=== PATIENT | female | born 1960 | race African-American/Black ===

== ENCOUNTER 2017-05-05 11:48 | Emergency (ER) | payer MEDICARE ==
[2017-05-05 12:17] LABS: #Basophils 0.1 thou/uL (0.0-0.2); #Eosinphils 0.1 thou/uL (0.0-0.7); #Lymphocytes 2.9 thou/uL (1.20-3.40); #Monocytes 0.7 thou/uL (0.11-0.59); #Neutrophils 5.6 thou/uL (1.40-6.50); %Basophils 0.7 % (0.0-1.0); %Eosinophils 0.7 % (0.0-10.0); %Lymphocytes 30.9 % (21.0-51.0); %Monocytes 7.5 % (0.0-10.0); %Neutrophils 60.1 % (42.0-75.0); Mean Corpuscular HGB CONC 32.7 g/dL (32.0-36.0); Mean Corpuscular Hemoglobin 27.1 pg (27.0-31.0); Mean Platelet Volume 6.9 fL (7.4-10.4); Platelet Count 185 thou/uL (130-400); RBC Distribution Width 13.4 % (11.5-14.5); Red Blood Cell (RBC) Count 5.16 mill/uL (4.20-5.40); White Blood Cell (WBC) Count 9.2 thou/uL (4.8-10.8)
[2017-05-05 12:34] LABS: ALT (SGPT) 17 U/L (8-55); AST (SGOT) 20 U/L (5-34); Albumin 4.1 g/dL (3.5-5.0); Alkaline Phosphatase 86 U/L (40-150); Anion Gap 15 mmol/L (10-20); BUN (Urea Nitrogen) 13 mg/dL (9.8-20.1); Bilirubin, Total 0.3 mg/dL (0.2-1.2); CK (CPK) 171 U/L (29-168); CKMB 6.6 ng/mL (0-6.6); Calc. Creatinine Clearance 0 mL/min (70-130); Calcium 9.7 mg/dL (7.8-10.44); Carbon Dioxide 24 mmol/L (22-29); Chloride 100 mmol/L (98-107); Estimated GFR-MDRD 63; Globulin 3.2 g/dL (2.4-3.5); Glucose 99 mg/dL (70-105); Lipase 38 U/L (8-78); Protein, Total 7.3 g/dL (6.0-8.3); Sodium 135 mmol/L (136-145); Troponin I 0.085 ng/mL (< 0.028)
[2017-05-05 12:47] LABS: Bilirubin Negative (Negative); Blood, Urine Small (Negative); Clarity Clear (Clear); Glucose, Urine (Dipstick) Negative (Negative); Leukocyte Negative (Negative); Nitrite Negative (Negative); Protein, Urine (Dipstick) Negative (Neg-Trace); Urobilinogen 0.2 mg/dL (0.2-1.0)
[2017-05-05 12:48] LABS: Bacteria/HPF Rare-Few HPF (None Seen); RBC/HPF 0-3 HPF (0-3); Squamous Epithelial 0-3 HPF (0-3); WBC/HPF 0-3 HPF (0-3)
--- NOTE | 2017-05-05 20:16 | RAD ---
PORTABLE CHEST 05/05/17 An AP portable film at 1203 is compared with a 05/16/16 study. The heart is mildly enlarged but unchanged in size. There are no congestive findings today. No effus ions or edema were present. The lungs are clear. The trachea is midline. The cardiac pacer remains i n place. IMPRESSION: Mild cardiomegaly but no acute thoracic finding. POS: HOME
== END 2017-05-05 14:12 | disposition short-term general hospital (02) ==
LOC: BURERS 11:48
DX: R07.9 Chest pain, unspecified (principal); R74.8 Abnormal levels of other serum enzymes; I25.2 Old myocardial infarction; E78.5 Hyperlipidemia, unspecified; I11.0 Hypertensive heart disease with heart failure; I50.9 Heart failure, unspecified; F17.210 Nicotine dependence, cigarettes, uncomplicated; Z79.84 Long term (current) use of oral hypoglycemic drugs; Z79.899 Other long term (current) drug therapy
CPT/HCPCS: 71010; 80053; 81003; 81015; 82550; 82553; 83690; 83880; 84484; 85025; 93005; 94760

== ENCOUNTER 2018-09-02 23:59 | Emergency (ER) | payer MEDICARE ==
[2018-09-03 00:37] LABS: #Basophils 0.1 thou/uL (0.0-0.2); #Eosinphils 0.1 thou/uL (0.0-0.7); #Lymphocytes 3.3 thou/uL (1.20-3.40); #Monocytes 0.7 thou/uL (0.11-0.59); #Neutrophils 8.7 thou/uL (1.40-6.50); %Basophils 0.7 % (0.0-1.0); %Lymphocytes 25.7 % (21.0-51.0); %Monocytes 5.6 % (0.0-10.0); Hemoglobin 13.2 g/dL (12.0-16.0); Mean Corpuscular HGB CONC 32.6 g/dL (32.0-36.0); Mean Corpuscular Hemoglobin 26.9 pg (27.0-31.0); Mean Corpuscular Volume 82.7 fL (78.0-98.0); Mean Platelet Volume 7.6 fL (7.4-10.4); Platelet Count 196 thou/uL (130-400); RBC Distribution Width 13.5 % (11.5-14.5)
[2018-09-03 00:48] LABS: ALT (SGPT) 17 U/L (8-55); AST (SGOT) 21 U/L (5-34); Albumin 4.1 g/dL (3.5-5.0); Alkaline Phosphatase 74 U/L (40-150); Anion Gap 15 mmol/L (10-20); BUN (Urea Nitrogen) 16 mg/dL (9.8-20.1); Bilirubin, Total 0.3 mg/dL (0.2-1.2); Calc. Creatinine Clearance 0 mL/min (70-130); Calcium 10.3 mg/dL (7.8-10.44); Carbon Dioxide 24 mmol/L (22-29); Chloride 105 mmol/L (98-107); Estimated GFR-MDRD 54; Globulin 3.2 g/dL (2.4-3.5); Glucose 155 mg/dL (70-105); Potassium 4.1 mmol/L (3.5-5.1); Protein, Total 7.3 g/dL (6.0-8.3); Sodium 140 mmol/L (136-145)
[2018-09-03 00:49] LABS: Bilirubin Negative (Negative); Blood, Urine Moderate (Negative); Clarity Clear (Clear); Glucose, Urine (Dipstick) Negative (Negative); Leukocyte Negative (Negative); Nitrite Negative (Negative); Protein, Urine (Dipstick) Negative (Neg-Trace); Specific Gravity, Urine 1.015 (1.005-1.030); Urobilinogen 0.2 mg/dL (0.2-1.0)
[2018-09-03 00:50] LABS: CKMB 3.6 ng/mL (0-6.6); Troponin I 0.063 ng/mL (< 0.028)
[2018-09-03 00:56] LABS: Squamous Epithelial 0-3 HPF (0-3); WBC/HPF 0-3 HPF (0-3)
[2018-09-03] MEDS ORDERED: Lorazepam 2 MG/ML VIAL ONE (01:13)
--- NOTE | 2018-09-03 18:30 | RAD ---
PORTABLE CHEST: 09/03/18 An AP portable film at midnight on 09/03 shows mild to moderate cardiomegaly that is similar to the film. There is no pulmonary edema or pleural effusion. At most, some of the upper lobe vessels may be sligh tly prominent, but even this is equivocal. No focal pulmonary infiltrates were seen. IMPRESSION: Cardiomegaly but no definite acute finding. POS: HOME
== END 2018-09-03 01:34 | disposition short-term general hospital (02) ==
LOC: BURERS 23:59
DX: R07.2 Precordial pain (principal); I25.2 Old myocardial infarction; E78.5 Hyperlipidemia, unspecified; I25.10 Atherosclerotic heart disease of native coronary artery without angina pectoris; F17.210 Nicotine dependence, cigarettes, uncomplicated; I11.0 Hypertensive heart disease with heart failure; I50.9 Heart failure, unspecified; Z79.899 Other long term (current) drug therapy; Z79.01 Long term (current) use of anticoagulants
CPT/HCPCS: 71045; 80053; 81003; 81015; 82553; 83880; 84484; 85025; 93005; 96374; J2060

== ENCOUNTER 2019-02-28 01:21 | Emergency (ER) | payer MEDICARE ==
[2019-02-28] MEDS ORDERED: Benzonatate 100 MG CAP ONE (01:54)
[2019-02-28] MEDS ORDERED: predniSONE 20 MG TAB ONE (02:03)
[2019-02-28] MEDS ORDERED: Azithromycin 250 MG TAB ONE (02:03)
--- NOTE | 2019-02-28 10:00 | RAD ---
PORTABLE CHEST: DATE: 02/28/2019. FINDINGS: An AP portable film at 0139 is compared with an 10/07/2018 study. Moderate cardiomegaly is about the same as before. There is no major lobar infiltrate. The only que stion was in the right base medially where there might be some linear streaking. Currently, this neftali ears more likely atelectasis or overlapping shadows than a pneumonia. This may need further followup . The vessels seem no more congested than usual. There are no effusions. IMPRESSION: No definite acute changes. See comments above. POS: HOME
== END 2019-02-28 02:12 | disposition home or self-care (01) ==
LOC: BURERS 01:21
DX: J20.9 Acute bronchitis, unspecified (principal); I25.2 Old myocardial infarction; E78.5 Hyperlipidemia, unspecified; I11.0 Hypertensive heart disease with heart failure; I50.9 Heart failure, unspecified; I25.10 Atherosclerotic heart disease of native coronary artery without angina pectoris; F17.210 Nicotine dependence, cigarettes, uncomplicated; Z79.899 Other long term (current) drug therapy; Z79.01 Long term (current) use of anticoagulants; Z79.82 Long term (current) use of aspirin; Z79.51 Long term (current) use of inhaled steroids
CPT/HCPCS: 71045; 94640; J7512; J7620

== ENCOUNTER → 2019-06-07 | Emergency (ER) | payer MEDICARE ==
[~2019-06-07] MED LIST: Aspirin Chewable 81 MG TAB ONE; Enoxaparin Sodium 100 MG/ML SYRINGE ONE; Ondansetron PF 4 MG/2 ML Vial ONE
[2019-06-07 22:21] LABS: #Basophils 0.1 thou/uL (0.0-0.2); #Eosinphils 0.2 thou/uL (0.0-0.7); #Lymphocytes 3.1 thou/uL (1.20-3.40); #Monocytes 0.5 thou/uL (0.11-0.59); #Neutrophils 6.2 thou/uL (1.40-6.50); %Basophils 0.7 % (0.0-1.0); %Eosinophils 1.8 % (0.0-10.0); %Lymphocytes 30.9 % (21.0-51.0); %Monocytes 4.5 % (0.0-10.0); %Neutrophils 62.1 % (42.0-75.0); Hemoglobin 13.4 g/dL (12.0-16.0); Mean Corpuscular HGB CONC 31.4 g/dL (32.0-36.0); Mean Corpuscular Hemoglobin 26.9 pg (27.0-31.0); Mean Corpuscular Volume 85.5 fL (78.0-98.0); Mean Platelet Volume 7.4 fL (7.4-10.4); Platelet Count 196 thou/uL (130-400); RBC Distribution Width 13.9 % (11.5-14.5); Red Blood Cell (RBC) Count 4.98 mill/uL (4.20-5.40); White Blood Cell (WBC) Count 9.9 thou/uL (4.8-10.8)
--- NOTE | 2019-06-07 22:30 | RAD ---
AP PORTABLE CHEST: 06/07/2019 2212 HOURS COMPARISON: 02/28/2019 FINDINGS: A cardiac pacer is in place, as usual. Mild cardiomegaly is about the same as before. There may be some very slight congestion of upper lobe vessels, however. The lungs are otherwise clear. There ar e no effusions. IMPRESSION: 1. Mild cardiomegaly, unchanged. 2. Question of slight vascular congestion. POS: HOME
[2019-06-07 22:35] LABS: ALT (SGPT) 18 U/L (8-55); AST (SGOT) 19 U/L (5-34); Albumin 4.1 g/dL (3.4-4.8); Alkaline Phosphatase 77 U/L (40-150); Anion Gap 16 mmol/L (10-20); BUN (Urea Nitrogen) 19 mg/dL (9.8-20.1); Bilirubin, Total 0.3 mg/dL (0.2-1.2); Calc. Creatinine Clearance 0 mL/min (70-130); Calcium 10.4 mg/dL (7.8-10.44); Carbon Dioxide 27 mmol/L (23-31); Chloride 104 mmol/L (98-107); Estimated GFR-MDRD 36; Globulin 3.5 g/dL (2.4-3.5); Glucose 148 mg/dL (80-115); Protein, Total 7.6 g/dL (6.0-8.3); Sodium 143 mmol/L (136-145)
[2019-06-07 22:52] LABS: CKMB 3.9 ng/mL (0-6.6)
== END ==
LOC: BURERS 21:51
DX: I24.9 Acute ischemic heart disease, unspecified (principal); R79.89 Other specified abnormal findings of blood chemistry; I25.2 Old myocardial infarction; I11.0 Hypertensive heart disease with heart failure; I50.9 Heart failure, unspecified; I25.10 Atherosclerotic heart disease of native coronary artery without angina pectoris; F17.210 Nicotine dependence, cigarettes, uncomplicated; Z79.899 Other long term (current) drug therapy; Z79.84 Long term (current) use of oral hypoglycemic drugs
CPT/HCPCS: 36416; 71045; 80053; 82553; 83605; 83880; 84484; 85025; 93005; 94760; 96372; 96374; J1650; J2405

== ENCOUNTER 2019-06-11 20:03 | Emergency (ER) | payer MEDICARE ==
[2019-06-11] MEDS ORDERED: HYDROcodone/Acetaminophen 5/325 mg Tablet ONE (20:55)
[2019-06-11 20:59] LABS: Bilirubin Negative (Negative); Blood, Urine Small (Negative); Clarity Clear (Clear); Glucose, Urine (Dipstick) Negative (Negative); Leukocyte Trace (Negative); Nitrite Negative (Negative); Protein, Urine (Dipstick) Negative (Neg-Trace); Urobilinogen 0.2 mg/dL (Less than 2)
[2019-06-11 21:05] LABS: Bacteria/HPF Rare-Few HPF (None Seen); Squamous Epithelial 0-3 HPF (0-3); WBC/HPF 0-3 HPF (0-3)
[2019-06-11 21:06] LABS: Mean Corpuscular HGB CONC 30.8 g/dL (32.0-36.0); Mean Corpuscular Hemoglobin 26.7 pg (27.0-31.0); Mean Corpuscular Volume 86.7 fL (78.0-98.0); Mean Platelet Volume 6.5 fL (7.4-10.4); Platelet Count 181 thou/uL (130-400); RBC Distribution Width 13.7 % (11.5-14.5); Red Blood Cell (RBC) Count 4.87 mill/uL (4.20-5.40); White Blood Cell (WBC) Count 10.3 thou/uL (4.8-10.8)
[2019-06-11 21:11] LABS: ALT (SGPT) 20 U/L (8-55); AST (SGOT) 21 U/L (5-34); Albumin 4.2 g/dL (3.4-4.8); Alkaline Phosphatase 78 U/L (40-150); Anion Gap 15 mmol/L (10-20); BUN (Urea Nitrogen) 18 mg/dL (9.8-20.1); Bilirubin, Total 0.2 mg/dL (0.2-1.2); Calc. Creatinine Clearance 0 mL/min (70-130); Calcium 10.2 mg/dL (7.8-10.44); Carbon Dioxide 25 mmol/L (23-31); Chloride 102 mmol/L (98-107); Estimated GFR-MDRD 49; Globulin 3.4 g/dL (2.4-3.5); Glucose 113 mg/dL (80-115); Lipase 35 U/L (8-78); Potassium 4.6 mmol/L (3.5-5.1); Protein, Total 7.6 g/dL (6.0-8.3); Sodium 137 mmol/L (136-145)
--- NOTE | 2019-06-11 21:29 | CT ---
CT ABDOMEN AND PELVIS WITHOUT CONTRAST: 06/11/[address] of the abdomen and pelvis was done for evaluation of pain. The scan was done without oral o r IV contrast. The lung bases are clear. The liver, spleen, pancreas, gallbladder, kidneys and abdominal aorta showe d no acute findings within the limitations of a noncontrast study. The left adrenal gland is rather b ulbous and widened measuring 1.8 cm. Centrally, the CT numbers are slightly negative indicating there is probably a small adenoma here. This is of no current concern. Regarding the bowel, there is no distention of bowel to suggest obstruction. A moderate amount of fec al material is seen in the colon but there is no signs of wall thickening. Mild diverticulosis withou t findings of diverticulitis is seen. The appendix was identified and appears normal. No free air or free fluid was present. CT of the pelvis shows no pelvic masses, fluid collections, or inflammatory changes. The abdominal ao rta is calcified but contains no sign of aneurysm. There may be some narrowing of the renal vessels a t their origins. IMPRESSION: 1. Mild increased in stool in the colon without evidence of obstruction. 2. Probable 1.7 cm left adrenal adenoma. Further follow-up probably not needed at this time. POS: HOME
[2019-06-11 21:34] LABS: Eosinophils 1 % (0-10); Lymphocytes 28 % (21-51); MDiff Complete? YES; Monocytes 9 % (0-10); Neutrophil 62 % (42-75); Platelet Morphology Comment Appears Adequate; RBC Morphology Normal
== END 2019-06-11 21:24 | disposition home or self-care (01) ==
LOC: BURERS 20:03
DX: R10.84 Generalized abdominal pain (principal); I11.0 Hypertensive heart disease with heart failure; I50.9 Heart failure, unspecified; I25.2 Old myocardial infarction; I25.10 Atherosclerotic heart disease of native coronary artery without angina pectoris; E78.00 Pure hypercholesterolemia, unspecified; F17.210 Nicotine dependence, cigarettes, uncomplicated; Z79.899 Other long term (current) drug therapy; Z95.5 Presence of coronary angioplasty implant and graft
CPT/HCPCS: 74176; 80053; 81003; 81015; 83605; 83690; 85025

== ENCOUNTER 2019-08-18 10:08 | Emergency (ER) | payer MEDICARE | END 2019-08-18 10:25 | disposition home or self-care (01) | LOC: BURERS 10:08 | DX: J20.9 Acute bronchitis, unspecified (principal); I25.2 Old myocardial infarction; I11.0 Hypertensive heart disease with heart failure; I50.9 Heart failure, unspecified; F17.210 Nicotine dependence, cigarettes, uncomplicated | CPT/HCPCS: 99283 ==